=== PATIENT | male | born 1955 ===

== ENCOUNTER 2025-03-11 20:52 | Emergency (ER) | payer OTHER ==
[~2025-03-11] VITALS: Ht 180.3 cm; Wt 93.0 kg
== END 2025-03-11 22:59 | disposition left against medical advice (07) ==
LOC: ER 20:52
DX: T21.02XA Burn of unspecified degree of abdominal wall, initial encounter (principal); T22.00XA Burn of unspecified degree of shoulder and upper limb, except wrist and hand, unspecified site, initial encounter; Z53.21 Procedure and treatment not carried out due to patient leaving prior to being seen by health care provider; X08.8XXA Exposure to other specified smoke, fire and flames, initial encounter
CPT/HCPCS: 99281